=== PATIENT | female | born 1965 | race Caucasian/White ===

== ENCOUNTER 2017-12-25 16:28 | Outpatient (CLI) | payer OTHER | END 2017-12-25 16:29 | disposition home or self-care (01) | LOC: BICMRI 16:28 | PROVIDERS: ATTEND Family Medicine | DX: M25.572 Pain in left ankle and joints of left foot (principal); M19.072 Primary osteoarthritis, left ankle and foot; M76.72 Peroneal tendinitis, left leg ==

== ENCOUNTER 2018-02-20 10:23 | Outpatient (CLI) | payer OTHER | END 2018-02-20 10:24 | disposition home or self-care (01) | LOC: BICRAD 10:23 | PROVIDERS: ATTEND Family Medicine | DX: M25.512 Pain in left shoulder (principal) ==

== ENCOUNTER 2018-03-23 11:09 | Outpatient (CLI) | payer OTHER | END 2018-03-23 11:10 | disposition home or self-care (01) | LOC: BICMAMMO 11:09 | PROVIDERS: ATTEND Family Medicine | DX: Z12.31 Encounter for screening mammogram for malignant neoplasm of breast (principal); Z80.3 Family history of malignant neoplasm of breast | CPT/HCPCS: 77063; 77067 ==